=== PATIENT | male | born 1965 | race Caucasian/White ===

== ENCOUNTER 2016-08-30 03:44 | Emergency (ER) | payer OTHER ==
[~2016-08-30] VITALS: Ht 162.6 cm; Wt 81.0 kg
[2016-08-30 03:47] VITALS: BP 119/78; PULSE 79; RESP 18; TEMP 97.7; O2SAT 99
[2016-08-30] MEDS ORDERED: LEVA500T PO (04:00)
[2016-08-30] MEDS ORDERED: METOCLOPRAMIDE HCL 10 MG/2 ML VIAL IV PUSH ONE (05:15)
[2016-08-30] MEDS ORDERED: GLUCAGON 1 MG/ML VIAL IV PUSH ONE (05:15)
[2016-08-30] MEDS ORDERED: SODIUM CHLOR 0.9% 1000 ML INJ 1,000 ML IV SCH (05:15)
[2016-08-30 05:25] LABS: BASOPHIL # 0.1 TH/MM3 (0-0.2); BASOPHIL % 0.7 % (0.0-2.0); EOSINOPHIL # 0.2 TH/MM3 (0-0.4); EOSINOPHIL % 2.1 % (0.0-4.0); HEMATOCRIT 44.1 % (39.0-51.0); HEMO FLAGS DIFF FINAL; LYMPH % 18.6 % (9.0-44.0); LYMPHOCYTE # 2.1 TH/MM3 (1.0-4.8); MEAN CELL VOLUME 86.6 FL (80.0-100.0); MEAN CORPUSCULAR HEMOGLOBIN 30.3 PG (27.0-34.0); MONO % 8.8 % (0.0-8.0); NEUT % 69.8 % (16.0-70.0); PLATELET COUNT 226 TH/MM3 (150-450); RED BLOOD COUNT 5.09 MIL/MM3 (4.50-5.90); RED CELL DISTRIBUTION WIDTH 12.8 % (11.6-17.2); WHITE BLOOD COUNT 11.5 TH/MM3 (4.0-11.0)
--- NOTE | 2016-08-30 05:37 | PD ---
HPI Chief Complaint: ENT Complaint Time Seen by Provider: 05:04 Travel History International Travel<30 days: No Contact w/Intl Traveler<30days: No Traveled to known affect area: No History of Present Illness HPI 51-year-old male presents to the emergency department for complaint of retained food bolus. Patient states that 3 days ago while eating chicken he became choked on the food and his friend performed the Heimlich on him and he has felt somewhat better but has been unable to tolerate solid oral intake. Patient states that he has no chronic medical conditions no heart disease high blood pressure no dyslipidemia no diabetes no previous issues with reflux or esophageal stricture. Patient states he has been able to handle oral secretions and he has been able to handle liquid intake and occasionally soft diet such as yogurt or putting. Patient states he has attempted solid food intake but again feels as if something becomes lodged in his lower esophagus even if he eats very small bites. Patient reports that he was seen in urgent care yesterday he was diagnosed with pneumonia and placed on antibiotic and encouraged to follow-up with a bowling ball finisher as it was a concern that he might have an aspiration of a foreign body. Patient's had no fever no chills and only has chest discomfort when attempting to swallow or to eat any foods. Patient does not have referred neck jaw back shoulder arm pain or abdominal pain. Patient's had no vomiting. No hematemesis coffee-ground emesis melena hematochezia. Patient rates his pain 9/10 in intensity. [facility] Past Medical History Narrative Medical Disc disease, alcohol use, marijuana use; nursing notes reviewed Diverticulitis: Yes Herniated Disk: Yes Influenza Vaccination: No Past Surgical History Surgical History: No Previous Surgery Social History Alcohol Use: Yes (couple beers everyday) Tobacco Use: No Substance Use: Yes (marijuana) Allergies-Medications (Allergen,Severity, Reaction): Coded Allergies: Penicillin (Verified Allergy, Severe, STOP BREATHING, 08/30/16) Amoxicillin (Verified Allergy, Mild, RASH, 08/30/16) Reported Meds & Prescriptions Reported Meds & Active Scripts Active Protonix (Pantoprazole Sodium) 40 Mg Tab 40 Mg PO DAILY Reported Levaquin (Levofloxacin) 500 Mg Tab 500 Mg PO DAILY Review of Systems Except as stated in HPI: all other systems reviewed are Neg General / Constitutional: No: Fever, Chills HENT: No: Headaches Cardiovascular: Positive: Chest Pain or Discomfort (with swallowing) Respiratory: No: Cough, Shortness of Breath Gastrointestinal: No: Nausea, Vomiting, Abdominal Pain Genitourinary: No: Flank Pain Musculoskeletal: No: Myalgias, Arthralgias Skin: No Rash Psychiatric: No: Anxiety Endocrine: No: Heat Intolerance Hematologic/Lymphatic: No: Easy Bruising Physical Exam Narrative GENERAL: Well-developed well-nourished male in no acute distress no respiratory distress. No stridor or hoarseness. SKIN: Warm and dry. HEAD: Normocephalic. EYES: No scleral icterus. No injection or drainage. NECK: Supple, trachea midline. No JVD or lymphadenopathy. CARDIOVASCULAR: Regular rate and rhythm without murmurs, gallops, or rubs. RESPIRATORY: Breath sounds equal bilaterally. No accessory muscle use. No wheezing no rales. GASTROINTESTINAL: Abdomen soft, non-tender, nondistended. MUSCULOSKELETAL: No cyanosis, or edema. BACK: Nontender without obvious deformity. No CVA tenderness. Data Data Last Documented VS Vital Signs Date Time Temp Pulse Resp B/P Pulse Ox O2 Delivery O2 Flow Rate FiO2 08/30/16 06:59 87 18 120/78 99 08/30/16 03:47 97.7 Room Air Orders Complete Blood Count With Diff (08/30/16 05:04) Chest, Single Ap (08/30/16 ) Electrocardiogram (08/30/16 ) Basic Metabolic Panel (Bmp) (08/30/16 05:04) Act Partial Throm Time (Ptt) (08/30/16 05:04) Prothrombin Time / Inr (Pt) (08/30/16 05:04) Metoclopramide Inj (Reglan Inj) (08/30/16 05:15) Glucagon Inj (Glucagon Inj) (08/30/16 05:15) Sodium Chlor 0.9% 1000 Ml Inj (Ns 1000 M (08/30/16 05:15) Morphine Inj (Morphine Inj) (08/30/16 05:45) Nitroglycerin Sl (Nitrostat Sl) (08/30/16 05:45) Pantoprazole (Protonix) (08/30/16 07:00) Labs Laboratory Tests Test 08/30/16 05:17 White Blood Count 11.5 TH/MM3 Red Blood Count 5.09 MIL/MM3 Hemoglobin 15.4 GM/DL Hematocrit 44.1 % Mean Corpuscular Volume 86.6 FL Mean Corpuscular Hemoglobin 30.3 PG Mean Corpuscular Hemoglobin 35.0 % Concent Red Cell Distribution Width 12.8 % Platelet Count 226 TH/MM3 Mean Platelet Volume 8.0 FL Neutrophils (%) (Auto) 69.8 % Lymphocytes (%) (Auto) 18.6 % Monocytes (%) (Auto) 8.8 % Eosinophils (%) (Auto) 2.1 % Basophils (%) (Auto) 0.7 % Neutrophils # (Auto) 8.0 TH/MM3 Lymphocytes # (Auto) 2.1 TH/MM3 Monocytes # (Auto) 1.0 TH/MM3 Eosinophils # (Auto) 0.2 TH/MM3 Basophils # (Auto) 0.1 TH/MM3 CBC Comment DIFF FINAL Differential Comment Prothrombin Time 11.9 SEC Prothromb Time International 1.1 RATIO Ratio Activated Partial 29.9 SEC Thromboplast Time Sodium Level 139 MEQ/L Potassium Level 4.4 MEQ/L Chloride Level 105 MEQ/L Carbon Dioxide Level 24.1 MEQ/L Anion Gap 10 MEQ/L Blood Urea Nitrogen 12 MG/DL Creatinine 1.23 MG/DL Estimat Glomerular Filtration 62 ML/MIN Rate Random Glucose 111 MG/DL Calcium Level 9.1 MG/DL [facility] Medical Decision Making Medical Screen Exam Complete: Yes Emergency Medical Condition: Yes Medical Record Reviewed: Yes Interpretation(s) EKG: Normal sinus rhythm rate [address] elevation or injury pattern change noted Last Impressions Chest X-Ray 08/30/16 0000 Signed Impressions: Service Date/Time: Tuesday, August 30, 2016 05:17 - CONCLUSION: No acute disease. Alhaji Nieves MD CBC & BMP Diagram 08/30/16 05:17 Vital Signs Date Time Temp Pulse Resp B/P Pulse Ox O2 Delivery O2 Flow Rate FiO2 08/30/16 03:47 97.7 79 18 119/78 99 Room Air Differential Diagnosis Retained esophageal foreign body, aspiration, pneumonia, esophageal spasm Narrative Course At 6:37 AM patient is clinically improved; patient given trial of oral hydration At 6:40 AM patient is able to tolerate oral hydration well without recurrent discomfort Physician Communication Physician Communication discussed with Dr Clinton --will see in office Diagnosis Primary Impression: Esophageal spasm Referrals: Oz,Denton El-sayed MD call for appointment Patient Instructions: General Instructions Additional Instructions: Follow clear liquid diet for next 12-24 hours advance as tolerated to bland/ soft diet as tolerated and then to regular diet avoiding fried and fatty foods Take Protonix as prescribed daily Follow-up with clinical rn manager call office in a.m. to schedule follow-up appointment Follow up with primary care provider Return to the emergency department for any concerns or change in condition Med/Other Pt SpecificInfo: Prescription(s) given Scripts Pantoprazole (Protonix)40 Mg Tab40 Mg PO DAILY #14 TAB Ref 0 Prov:Frida Lopez MD 08/30/16 Disposition: DISCHARGE HOME Condition: Stable Frida Lopez MD Aug 30, 2016 05:37
[2016-08-30 05:44] LABS: BICARBONATE 24.1 MEQ/L (21.0-32.0); POTASSIUM 4.4 MEQ/L (3.5-5.1)
[2016-08-30] MEDS ORDERED: MORPHINE SULFATE 4 MG/ML INJ IV PUSH ONE (05:45)
[2016-08-30] MEDS ORDERED: NITROGLYCERIN 0.4 MG SL 25 TABS/BTL SL ONE (05:45)
--- NOTE | 2016-08-30 06:26 | RADRPT ---
EXAM DATE/TIME: 08/30/2016 05:17 [facility] COMPARISON: No previous studies available for comparison. INDICATIONS : Swallowing difficulty with burning midline chest. MEDICAL HISTORY : None. SURGICAL HISTORY : None. ENCOUNTER: Initial ACUITY: 1 day PAIN SCORE: 8/10 LOCATION: MID CHEST FINDINGS: A single view of the chest demonstrates the lungs to be symmetrically aerated without evidence of mas s, infiltrate or effusion. The cardiomediastinal contours are unremarkable. Osseous structures are intact. CONCLUSION: No acute disease. Alhaji Nieves MD on August 30, 2016 at 6:25 Board Certified Radiologist. This report was verified electronically.
[2016-08-30 06:32] LABS: APTT (PATIENT) 29.9 SEC (24.3-30.1); INTERNATIONAL NORMALIZED RATIO 1.1 RATIO; PROTHROMBIN TIME - PATIENT 11.9 SEC (9.8-11.6)
[2016-08-30] MEDS ORDERED: PROT40TA PO (06:50)
[2016-08-30 06:59] VITALS: BP 120/78
[2016-08-30] MEDS ORDERED: PANTOPRAZOLE SOD 20 MG DELAYED RELEASE TAB PO ONE (07:00)
--- NOTE | 2016-08-30 14:25 | EKG ---
Date Performed: 08/30/2016 Time Performed: 05:34:12 PTAGE: 51 years EKG: Sinus rhythm NORMAL ECG NO PREVIOUS TRACING DOCTOR: Bartolo Morrissey Interpretating Date/Time 08/30/2016 14:25:01
== END 2016-08-30 07:52 | disposition home or self-care (01) ==
LOC: NEPC 03:44
DX: K22.4 Dyskinesia of esophagus (principal); R13.10 Dysphagia, unspecified
CPT/HCPCS: 71010; 80048; 85025; 85610; 85730; 93005; 96361; 96374; 96375; 99284; J1610; J2270; J2765; J7030

== ENCOUNTER 2017-01-30 19:25 | Emergency (ER) | payer OTHER ==
[~2017-01-30] VITALS: Ht 165.1 cm; Wt 78.0 kg
[~2017-01-30 19:25] MED LIST: LEVA500T PO; PROT40TA PO
[2017-01-30] MEDS ORDERED: IOHEXOL 350 MG/ML 10 ML VIAL (for RAD DIAG) IVCONTRAST ONE (19:26)
[2017-01-30 19:27] VITALS: BP 135/87; PULSE 65; RESP 16; TEMP 98.1; O2SAT 98
[2017-01-30 21:18] VITALS: BP 155/99; PULSE 56; RESP 18; O2SAT 100
[2017-01-30] MEDS ORDERED: SODIUM CHLORIDE 0.9% FLUSH 10 ML FLUSH IV FLUSH PRN (22:00)
--- NOTE | 2017-01-30 22:04 | PD ---
HPI Chief Complaint: Abdominal Pain Time Seen by Provider: 21:24 Travel History International Travel<30 days: No Contact w/Intl Traveler<30days: No Traveled to known affect area: No History of Present Illness HPI 51yo M presents to the ED with c/o left lower abdominal pain for 1 week but worse today. Pt had similar abdominal pain 1 month ago and went to his PMD and got some antibiotics and felt better. Pt also with rectal pain today and states he had hard stool. Also had difficulty starting urination today. Denies any fever, chest pain, sob, n/v, dysuria, hematuria, testicular pain, penile rash or discharge. PFSH Past Medical History Diminished Hearing: No Diverticulitis: Yes Herniated Disk: Yes Tetanus Vaccination: < 5 Years Influenza Vaccination: No Social History Alcohol Use: Yes (couple beers everyday) Tobacco Use: No Substance Use: Yes (marijuana) Allergies-Medications (Allergen,Severity, Reaction): Coded Allergies: penicillin G (Unverified Allergy, Severe, STOP BREATHING, 01/30/17) amoxicillin (Unverified Allergy, Mild, RASH, 01/30/17) Reported Meds & Prescriptions Reported Meds & Active Scripts Active No Active Prescriptions or Reported Medications Review of Systems Except as stated in HPI: all other systems reviewed are Neg Physical Exam Narrative GENERAL: 51yo M in mild distress. SKIN: Focused skin assessment warm/dry. HEAD: Atraumatic. Normocephalic. CARDIOVASCULAR: Regular rate and rhythm. No murmur appreciated. RESPIRATORY: No accessory muscle use. Clear to auscultation. Breath sounds equal bilaterally. GASTROINTESTINAL: Abdomen soft, +TTP LLQ. No rebound tenderness or guarding. RECTAL: No external hemorrhoids. No abscess. No open wounds. Hemaprompt negative. Brown stool. MUSCULOSKELETAL: No obvious deformities. No clubbing. No cyanosis. No edema. NEUROLOGICAL: Awake and alert. No obvious cranial nerve deficits. Motor grossly within normal limits. Normal speech. PSYCHIATRIC: Appropriate mood and affect; insight and judgment normal. Data Data Last Documented VS Vital Signs Date Time Temp Pulse Resp B/P (MAP) Pulse Ox O2 Delivery O2 Flow Rate FiO2 01/30/17 23:34 65 18 144/96 (112) 99 Room Air 01/30/17 19:27 98.1 Orders Orders Complete Blood Count With Diff (01/30/17 21:51) Comprehensive Metabolic Panel (01/30/17 21:51) Lipase (01/30/17 21:51) Urinalysis - C+S If Indicated (01/30/17 21:51) Iv Access Insert/Monitor (01/30/17 21:51) Ecg Monitoring (01/30/17 21:51) Oximetry (01/30/17 21:51) Sodium Chloride 0.9% Flush (Ns Flush) (01/30/17 22:00) Morphine Inj (Morphine Inj) (01/30/17 23:15) Ct Abd/Pel W Iv Contrast(Rout) (01/30/17 ) Iohexol 350 Inj (Omnipaque 350 Inj) (01/30/17 19:26) Ciprofloxacin (Cipro) (01/31/17 01:00) Metronidazole (Flagyl) (01/31/17 01:00) Labs Laboratory Tests Test 01/30/17 22:35 01/30/17 22:55 White Blood Count 8.3 TH/MM3 Red Blood Count 4.56 MIL/MM3 Hemoglobin 14.2 GM/DL Hematocrit 39.8 % Mean Corpuscular Volume 87.2 FL Mean Corpuscular Hemoglobin 31.2 PG Mean Corpuscular Hemoglobin Concent 35.8 % Red Cell Distribution Width 12.8 % Platelet Count 205 TH/MM3 Mean Platelet Volume 8.4 FL Neutrophils (%) (Auto) 57.5 % Lymphocytes (%) (Auto) 32.7 % Monocytes (%) (Auto) 6.8 % Eosinophils (%) (Auto) 2.4 % Basophils (%) (Auto) 0.6 % Neutrophils # (Auto) 4.8 TH/MM3 Lymphocytes # (Auto) 2.7 TH/MM3 Monocytes # (Auto) 0.6 TH/MM3 Eosinophils # (Auto) 0.2 TH/MM3 Basophils # (Auto) 0.1 TH/MM3 CBC Comment DIFF FINAL Differential Comment Blood Urea Nitrogen 19 MG/DL Creatinine 1.18 MG/DL Random Glucose 90 MG/DL Total Protein 6.7 GM/DL Albumin 3.5 GM/DL Calcium Level 8.9 MG/DL Alkaline Phosphatase 63 U/L Aspartate Amino Transf (AST/SGOT) 54 U/L Alanine Aminotransferase (ALT/SGPT) 48 U/L Total Bilirubin 0.3 MG/DL Sodium Level 141 MEQ/L Potassium Level 4.0 MEQ/L Chloride Level 107 MEQ/L Carbon Dioxide Level 24.5 MEQ/L Anion Gap 10 MEQ/L Estimat Glomerular Filtration Rate 65 ML/MIN Lipase 313 U/L Urine Color YELLOW Urine Turbidity CLEAR Urine pH 5.5 Urine Specific [place] 1.013 Urine Protein NEG mg/dL Urine Glucose (UA) NEG mg/dL Urine Ketones NEG mg/dL Urine Occult Blood NEG Urine Nitrite NEG Urine Bilirubin NEG Urine Urobilinogen LESS THAN 2.0 MG/DL Urine Leukocyte Esterase NEG Urine RBC LESS THAN 1 /hpf Urine WBC 1 /hpf Microscopic Urinalysis Comment CULT NOT INDICATED MDM Medical Decision Making Medical Screen Exam Complete: Yes Emergency Medical Condition: Yes Differential Diagnosis Acute diverticulitis vs. prostatitis vs. UTI Narrative Course 51yo M with left lower abdominal pain for 1 week. Pt had similar pain 1 month ago and was given antibiotics which helped. Pt did not have any imaging done and presumed to have had diverticulitis. Pt also with a different rectal pain today. Hemaprompt negative. Labs reviewed, no leukocytosis. AST mildly elevated but pt has no right sided abdominal pain. Lipase normal. UA negative for blood, leukocyte. Pt given morphine 4mg IV which helped with pain. Although, clinically sounds like diverticulitis, pt has not had any imaging and this is the second time the pain has been there, so will obtain CTa/p to r/o complications of diverticulitis. CTa/p showed mild sigmoid diverticulitis. No abscess, obstruction, free fluid or free air. Pt given first dose of ciprofloxacin and metronidazole here. He is well appearing and tolerating PO. Diagnosis Primary Impression: Diverticulitis Qualified Codes: K57.32 - Diverticulitis of large intestine without perforation or abscess without bleeding Patient Instructions: General Instructions Departure Forms: Tests/Procedures Additional Instructions: Please follow up with your primary care physician in 3-7 days. Return to the ED if symptoms worsen. Med/Other Pt SpecificInfo: Prescription(s) given Scripts Metronidazole (Metronidazole) 500 Mg Tab 500 MG PO TID for Infection for 7 Days, TAB 0 Refills Prov: Radha Walton DO 01/31/17 Ciprofloxacin (Cipro) 500 Mg Tab 500 MG PO BID for Infection for 7 Days, TAB 0 Refills Prov: Radha Walton DO 01/31/17 Disposition: 01 DISCHARGE HOME Condition: Stable Radha Walton DO Jan 30, 2017 22:04
[2017-01-30 22:29] VITALS: RESP 18; O2SAT 99
[2017-01-30 23:02] LABS: AUTOMATED NEUTROPHIL # 4.8 TH/MM3 (1.8-7.7); BASOPHIL # 0.1 TH/MM3 (0-0.2); BASOPHIL % 0.6 % (0.0-2.0); EOSINOPHIL # 0.2 TH/MM3 (0-0.4); EOSINOPHIL % 2.4 % (0.0-4.0); HEMATOCRIT 39.8 % (39.0-51.0); HEMO FLAGS DIFF FINAL; LYMPH % 32.7 % (9.0-44.0); LYMPHOCYTE # 2.7 TH/MM3 (1.0-4.8); MEAN CELL VOLUME 87.2 FL (80.0-100.0); MEAN CORPUSCULAR HEMOGLOBIN 31.2 PG (27.0-34.0); MEAN CORPUSCULAR HGB CONC 35.8 % (32.0-36.0); MONO % 6.8 % (0.0-8.0); NEUT % 57.5 % (16.0-70.0); PLATELET COUNT 205 TH/MM3 (150-450); RED BLOOD COUNT 4.56 MIL/MM3 (4.50-5.90); RED CELL DISTRIBUTION WIDTH 12.8 % (11.6-17.2); WHITE BLOOD COUNT 8.3 TH/MM3 (4.0-11.0)
[2017-01-30 23:12] LABS: BLOOD, URINE NEG (NEG); COMMENT (UR) CULT NOT INDICATED; CULTURE IF INDICATED CULT NOT INDICATED; GLUCOSE,URINE NEG (NEG); KETONE, URINE NEG (NEG); NITRITE,URINE NEG (NEG); PH, URINE 5.5 (5.0-8.5); URINE COLOR YELLOW (YELLW/STRAW)
[2017-01-30] MEDS ORDERED: MORPHINE SULFATE 4 MG/ML INJ IV PUSH ONE (23:15)
[2017-01-30 23:20] LABS: ALT (GPT) 48 U/L (12-78); ANION GAP 10 MEQ/L (5-15); AST (GOT) 54 U/L (15-37); BICARBONATE 24.5 MEQ/L (21.0-32.0); BLOOD UREA NITROGEN 19 MG/DL (7-18); CHLORIDE 107 MEQ/L (98-107); GLOMERULAR FILTRATION RATE 65 ML/MIN (>89); SODIUM (NA) 141 MEQ/L (136-145)
[2017-01-30 23:22] LABS: ALKALINE PHOSPHATASE 63 U/L (45-117); TOTAL BILIRUBIN ADULT 0.3 MG/DL (0.2-1.0)
[2017-01-30 23:34] VITALS: BP 144/96; PULSE 65; RESP 18; O2SAT 99
--- NOTE | 2017-01-31 00:41 | RADRPT ---
EXAM DATE/TIME: 01/31/2017 00:10 [facility] COMPARISON: No previous studies available for comparison. INDICATIONS : Left lower abdomen and groin pain. IV CONTRAST: 75 cc Omnipaque 350 (iohexol) IV ORAL CONTRAST: No oral contrast ingested. RADIATION DOSE: 12.75 CTDIvol (mGy) MEDICAL HISTORY : Diverticulitis. SURGICAL HISTORY : None. ENCOUNTER: Initial ACUITY: 2 weeks PAIN SCALE: 5/10 LOCATION: Left lower quadrant TECHNIQUE: Volumetric scanning of the abdomen and pelvis was performed. Using automated exposure control and ad justment of the mA and/or kV according to patient size, radiation dose was kept as low as reasonably achievable to obtain optimal diagnostic quality images. DICOM format image data is available electro nically for review and comparison. FINDINGS: Lung bases are clear. Calcified granulomata in the liver. The spleen, adrenals and pancreas unremarka ble. Numerous small nonobstructing calculi in both kidneys in the upper and lower poles ranging in si ze from 1-3 mm. No bowel obstruction. No free air or free fluid. No adenopathy. There are sigmoid diverticula with some mild inflammatory changes in the mid sigmoid most characteris tic of a mild diverticulitis. CONCLUSION: Mild sigmoid diverticulitis. No abscess, obstruction, free fluid or free air. Multiple nonobstructing bilateral renal calculi. Aftab Rhodes MD on January 31, 2017 at 0:34 Board Certified Radiologist. This report was verified electronically.
[2017-01-31] MEDS ORDERED: CIPR-9 PO (00:56)
[2017-01-31] MEDS ORDERED: METR500T10 PO (00:56)
[2017-01-31] MEDS ORDERED: CIPROFLOXACIN 500 MG TAB PO ONE (01:00)
[2017-01-31] MEDS ORDERED: metroNIDAZOLE 500 MG TAB PO ONE (01:00)
[2017-01-31 01:08] VITALS: BP 147/93
== END 2017-01-31 01:17 | disposition home or self-care (01) ==
LOC: NEPD 19:25
DX: K57.32 Diverticulitis of large intestine without perforation or abscess without bleeding (principal)
CPT/HCPCS: 74177; 80053; 81001; 83690; 85025; 96374; 99285; J2270; Q9967

== ENCOUNTER 2017-03-23 20:28 | Emergency (ER) | payer OTHER ==
[~2017-03-23] VITALS: Ht 162.6 cm; Wt 81.5 kg
[~2017-03-23 20:28] MED LIST changes: +CIPR-9 PO; -LEVA500T PO; +METR500T10 PO; -PROT40TA PO
[2017-03-23 20:31] VITALS: BP 136/100; PULSE 83; RESP 20; TEMP 97.8; O2SAT 97
[2017-03-23 22:39] VITALS: BP 136/94; PULSE 80; RESP 30; TEMP 98; O2SAT 99
--- NOTE | 2017-03-23 23:13 | PD ---
HPI . Abdominal pain Chief Complaint: Abdominal Pain Time Seen by Provider: 23:00 Travel History International Travel<30 days: No Contact w/Intl Traveler<30days: No Traveled to known affect area: No History of Present Illness HPI This patient presents complaining with abdominal pain, constipation and difficulty urinating. Onset was about 2 days ago. He has not tried anything other than his usual medications for his symptoms. Specifically, he has not tried a laxative. He states that he has felt like he is running a fever. He states that he has the urge to urinate and goes to the restroom and can only pass a couple of drops. He is also complaining with rectal pain. He reports previous similar symptoms related to diverticulitis. He believes that he was here a couple weeks ago for the same thing. He states that he just finished antibiotics a couple of days ago and that his symptoms immediately recurred. He states that his abdominal pain associated with it feels like he is dying. PFSH Past Medical History Diminished Hearing: No Diverticulitis: Yes Herniated Disk: Yes Kidney Stones: Yes Tetanus Vaccination: < 5 Years Influenza Vaccination: No Social History Alcohol Use: Yes (WEEKLY) Tobacco Use: No Substance Use: No Allergies-Medications (Allergen,Severity, Reaction): Coded Allergies: penicillin G (Unverified Allergy, Severe, STOP BREATHING, 03/23/17) amoxicillin (Unverified Allergy, Mild, RASH, 03/23/17) Reported Meds & Prescriptions Reported Meds & Active Scripts Active Metronidazole 500 Mg Tab 500 Mg PO TID 7 Days Cipro (Ciprofloxacin HCl) 500 Mg Tab 500 Mg PO BID 7 Days Review of Systems Except as stated in HPI: all other systems reviewed are Neg General / Constitutional: Positive: Fever, Chills Gastrointestinal: Positive: Nausea, Abdominal Pain, Constipation, No: Vomiting , Diarrhea Genitourinary: Positive: Urgency, Frequency, Decreased Urinary Output, Hesitancy, Dribbling, No: Dysuria, Hematuria Physical Exam Narrative Vital Signs Date Time Temp Pulse Resp B/P (MAP) Pulse Ox O2 Delivery O2 Flow Rate FiO2 03/23/17 22:39 98.0 80 30 136/94 (108) 99 Room Air 03/23/17 20:31 97.8 83 20 136/100 (112) 97 Room Air GENERAL: Pain scale using the Navarro-Hill Faces pain scale is 1/5. SKIN: warm/dry. HEAD: Normocephalic. Atraumatic. EYES: Pupils equal and round. No scleral icterus. No injection or drainage. ENT: No nasal bleeding or discharge. Mucous membranes pink and moist. NECK: Trachea midline. Full range of motion without pain.. CARDIOVASCULAR: Regular rate and rhythm. Heart sounds are normal. RESPIRATORY: No accessory muscle use. Clear to auscultation. Breath sounds equal bilaterally. GASTROINTESTINAL: Abdomen soft. Diffusely tender with no guarding or rebound. Bowel sounds present. Nondistended. MUSCULOSKELETAL: No obvious deformities. NEUROLOGICAL: Awake and alert. No obvious cranial nerve deficits. Motor grossly within normal limits. Normal speech. PSYCHIATRIC: Appropriate mood and affect; insight and judgment normal. Data Data Last Documented VS Vital Signs Date Time Temp Pulse Resp B/P (MAP) Pulse Ox O2 Delivery O2 Flow Rate FiO2 03/23/17 22:39 98.0 80 30 136/94 (108) 99 Room Air Orders Orders Complete Blood Count With Diff (03/23/17 23:15) Comprehensive Metabolic Panel (03/23/17 23:15) Lipase (03/23/17 23:15) Lactic Acid (03/23/17 23:15) Urinalysis - C+S If Indicated (03/23/17 23:15) Abdomen, Flat & Upright (03/23/17 ) Iv Access Insert/Monitor (03/23/17 23:15) Morphine Inj (Morphine Inj) (03/23/17 23:15) Ondansetron Inj (Zofran Inj) (03/23/17 23:15) Sodium Chloride 0.9% Flush (Ns Flush) (03/23/17 23:15) Bladder Scan PRN (03/23/17 23:15) Sodium Chlor 0.9% 1000 Ml Inj (Ns 1000 M (03/24/17 00:15) Fleets Enema (Adult) (Fleets Enema (Adul (03/24/17 00:30) Labs Laboratory Tests Test 03/23/17 23:30 White Blood Count 10.1 TH/MM3 Red Blood Count 4.55 MIL/MM3 Hemoglobin 14.3 GM/DL Hematocrit 39.7 % Mean Corpuscular Volume 87.1 FL Mean Corpuscular Hemoglobin 31.4 PG Mean Corpuscular Hemoglobin Concent 36.0 % Red Cell Distribution Width 13.0 % Platelet Count 277 TH/MM3 Mean Platelet Volume 7.8 FL Neutrophils (%) (Auto) 59.7 % Lymphocytes (%) (Auto) 29.2 % Monocytes (%) (Auto) 9.4 % Eosinophils (%) (Auto) 1.1 % Basophils (%) (Auto) 0.6 % Neutrophils # (Auto) 6.1 TH/MM3 Lymphocytes # (Auto) 3.0 TH/MM3 Monocytes # (Auto) 1.0 TH/MM3 Eosinophils # (Auto) 0.1 TH/MM3 Basophils # (Auto) 0.1 TH/MM3 CBC Comment AUTO DIFF Blood Urea Nitrogen 26 MG/DL Creatinine 1.37 MG/DL Random Glucose 110 MG/DL Total Protein 7.0 GM/DL Albumin 3.9 GM/DL Calcium Level 9.8 MG/DL Alkaline Phosphatase 67 U/L Aspartate Amino Transf (AST/SGOT) 18 U/L Alanine Aminotransferase (ALT/SGPT) 38 U/L Total Bilirubin 0.7 MG/DL Sodium Level 138 MEQ/L Potassium Level 3.5 MEQ/L Chloride Level 105 MEQ/L Carbon Dioxide Level 23.8 MEQ/L Anion Gap 9 MEQ/L Estimat Glomerular Filtration Rate 55 ML/MIN Lactic Acid Level 1.1 mmol/L Lipase 148 U/L MDM Medical Decision Making Medical Screen Exam Complete: Yes Emergency Medical Condition: Yes Medical Record Reviewed: Yes (this patient was last seen here on January 30. He was treated for diverticulitis at that time with Flagyl. He had a CT that showed mild sigmoid diverticulitis. His laboratory workup was negative.) Differential Diagnosis Differential diagnosis of abdominal pain includes but is not limited to gastritis, pancreatitis, hepatitis, gastroenteritis, gallbladder disease, constipation, urinary retention, UTI, peptic ulcer disease, diverticulitis or appendicitis Narrative Course This patient presents with diffuse abdominal pain associated with constipation and inability to urinate. I will asked the nurses to do a bladder scan. I will check basic labs. I will dictate plain films of his abdomen to assess his level of constipation. Because of the risk associated with radiation, I will not do another CT of his abdomen unless his labs are abnormal. Bladder scan showed about 250 cc of urine. abd X-ray>>: Normal examination. The x-ray was independently viewed by me. CBC & BMP Diagram 03/23/17 23:30 Total Protein 7.0, Albumin 3.9, Calcium Level 9.8, Alkaline Phosphatase 67, Aspartate Amino Transf (AST/SGOT) 18, Alanine Aminotransferase (ALT/SGPT) 38, Total Bilirubin 0.7 Lactic acid level is 1.1. Lipase is 148. His BUN/creatinine have increased since the last time that he was here. I will give him a liter of fluid. Please see Robert Saravia PA-C's note for results of laboratory and radiographic evaluation, ED course, final diagnosis and disposition Diagnosis Primary Impression: Abdominal pain Qualified Codes: R10.84 - Generalized abdominal pain Patient Instructions: Abdominal Pain (ED), Constipation (DC), General Instructions Scripts Tamsulosin (Flomax) 0.4 Mg Cap 0.4 MG PO HS for Manage Prostate Problems, #30 CAP 0 Refills Prov: Anusha Parsons MD 03/24/17 Condition: Stable Anusha Parsons MD Mar 23, 2017 23:13
[2017-03-23] MEDS ORDERED: ONDANSETRON HCL 4 MG/2 ML VIAL IVP ONE (23:15)
[2017-03-23] MEDS ORDERED: MORPHINE SULFATE 4 MG/ML INJ IV PUSH ONE (23:15)
[2017-03-23] MEDS ORDERED: SODIUM CHLORIDE 0.9% FLUSH 10 ML FLUSH IV FLUSH PRN (23:15)
[2017-03-23 23:43] LABS: AUTOMATED NEUTROPHIL # 6.1 TH/MM3 (1.8-7.7); BASOPHIL # 0.1 TH/MM3 (0-0.2); BASOPHIL % 0.6 % (0.0-2.0); EOSINOPHIL # 0.1 TH/MM3 (0-0.4); EOSINOPHIL % 1.1 % (0.0-4.0); HEMATOCRIT 39.7 % (39.0-51.0); HEMO FLAGS AUTO DIFF; LYMPH % 29.2 % (9.0-44.0); MEAN CELL VOLUME 87.1 FL (80.0-100.0); MEAN CORPUSCULAR HEMOGLOBIN 31.4 PG (27.0-34.0); MONO % 9.4 % (0.0-8.0); NEUT % 59.7 % (16.0-70.0); PLATELET COUNT 277 TH/MM3 (150-450); RED BLOOD COUNT 4.55 MIL/MM3 (4.50-5.90); WHITE BLOOD COUNT 10.1 TH/MM3 (4.0-11.0)
[2017-03-24 00:03] LABS: ALT (GPT) 38 U/L (12-78); ANION GAP 9 MEQ/L (5-15); AST (GOT) 18 U/L (15-37); BICARBONATE 23.8 MEQ/L (21.0-32.0); BLOOD UREA NITROGEN 26 MG/DL (7-18); CHLORIDE 105 MEQ/L (98-107); GLOMERULAR FILTRATION RATE 55 ML/MIN (>89); POTASSIUM 3.5 MEQ/L (3.5-5.1); SODIUM (NA) 138 MEQ/L (136-145)
[2017-03-24 00:06] LABS: ALKALINE PHOSPHATASE 67 U/L (45-117); TOTAL BILIRUBIN ADULT 0.7 MG/DL (0.2-1.0)
[2017-03-24] MEDS ORDERED: SODIUM CHLOR 0.9% 1000 ML INJ 1,000 ML IV ONE (00:15)
--- NOTE | 2017-03-24 00:17 | RADRPT ---
EXAM DATE/TIME: 03/23/2017 23:26 [facility] COMPARISON: No previous studies available for comparison. INDICATIONS : Ongoing abdominal pain for three months. MEDICAL HISTORY : Diverticulitis. SURGICAL HISTORY : None. ENCOUNTER: Subsequent ACUITY: 3 months PAIN SCORE: 8/10 LOCATION: Bilateral Abdomen FINDINGS: Supine and upright views of the abdomen were performed. The abdominal bowel gas pattern is normal. No air fluid levels are seen. No abnormal masses, calcifications, or organomegaly is seen. The visu alized lower lungs are clear. No evidence of free intraperitoneal gas. The osseous structures are u nremarkable. CONCLUSION: Normal examination. Armando Samuels MD on March 24, 2017 at 0:15 Board Certified Radiologist. This report was verified electronically.
[2017-03-24] MEDS ORDERED: SOD PHOSPHATE/SOD BIPHOSPHATE (ADULT) ENEMA 133ML RECTAL ONE (00:30)
[2017-03-24] MEDS ORDERED: TAMS5CAP PO (00:55)
[2017-03-24 01:30] LABS: BANDS 3 % (0-6); EOSINOPHILS 1 % (0-4); NEUTROPHIL # MANUAL DIFF 6.6 TH/MM3 (1.8-7.7); POLYS (SEG NEUTROPHILS) 62 % (16-70); WBC DIFF SAMPLE 100
[2017-03-24 01:32] LABS: PLATELET ESTIMATE SMEAR NORMAL (NORMAL); PLATELET MORPHOLOGY NORMAL (NORMAL); SCAN/DIFF FINAL DIFF MANUAL
--- NOTE | 2017-03-24 02:22 | PD ---
Physical Exam Date Seen by Provider: Mar 24, 2017 Time Seen by Provider: 02:17 Narrative GENERAL: This is a well-nourished, well-developed patient, in no apparent distress. SKIN: No rashes, ecchymoses or lesions. Warm and dry. HEAD: Atraumatic. Normocephalic. EYES: PERRL, EOMI, no discharge or injection. No scleral icterus. EARS: Clear NOSE: Nasal turbinates appear normal. THROAT: Mucosa pink and moist. Airway patent. NECK: Trachea midline. supple, moves head freely. LUNGS: Clear to auscultation. CV: Regular in rhythm. ABDOMEN: Soft nontender. No abnormal masses. No guarding or rebound. EXT: No clubbing cyanosis or edema. Data Data Last Documented VS Vital Signs Date Time Temp Pulse Resp B/P (MAP) Pulse Ox O2 Delivery O2 Flow Rate FiO2 03/23/17 22:39 98.0 80 30 136/94 (108) 99 Room Air Orders Orders Complete Blood Count With Diff (03/23/17 23:15) Comprehensive Metabolic Panel (03/23/17 23:15) Lipase (03/23/17 23:15) Lactic Acid (03/23/17 23:15) Urinalysis - C+S If Indicated (03/23/17 23:15) Abdomen, Flat & Upright (03/23/17 ) Iv Access Insert/Monitor (03/23/17 23:15) Morphine Inj (Morphine Inj) (03/23/17 23:15) Ondansetron Inj (Zofran Inj) (03/23/17 23:15) Sodium Chloride 0.9% Flush (Ns Flush) (03/23/17 23:15) Bladder Scan PRN (03/23/17 23:15) Sodium Chlor 0.9% 1000 Ml Inj (Ns 1000 M (03/24/17 00:15) Fleets Enema (Adult) (Fleets Enema (Adul (03/24/17 00:30) Urinary Catheter Insert/Apply (03/24/17 01:23) Labs Laboratory Tests Test 03/23/17 23:30 03/24/17 02:00 White Blood Count 10.1 TH/MM3 Red Blood Count 4.55 MIL/MM3 Hemoglobin 14.3 GM/DL Hematocrit 39.7 % Mean Corpuscular Volume 87.1 FL Mean Corpuscular Hemoglobin 31.4 PG Mean Corpuscular Hemoglobin Concent 36.0 % Red Cell Distribution Width 13.0 % Platelet Count 277 TH/MM3 Mean Platelet Volume 7.8 FL Neutrophils (%) (Auto) 59.7 % Lymphocytes (%) (Auto) 29.2 % Monocytes (%) (Auto) 9.4 % Eosinophils (%) (Auto) 1.1 % Basophils (%) (Auto) 0.6 % Neutrophils # (Auto) 6.1 TH/MM3 Lymphocytes # (Auto) 3.0 TH/MM3 Monocytes # (Auto) 1.0 TH/MM3 Eosinophils # (Auto) 0.1 TH/MM3 Basophils # (Auto) 0.1 TH/MM3 CBC Comment AUTO DIFF Differential Total Cells Counted 100 Neutrophils % (Manual) 62 % Band Neutrophils % 3 % Lymphocytes % 27 % Monocytes % 7 % Eosinophils % 1 % Neutrophils # (Manual) 6.6 TH/MM3 Differential Comment FINAL DIFF MANUAL Platelet Estimate NORMAL Platelet Morphology Comment NORMAL Red Cell Morphology Comment NORMAL Blood Urea Nitrogen 26 MG/DL Creatinine 1.37 MG/DL Random Glucose 110 MG/DL Total Protein 7.0 GM/DL Albumin 3.9 GM/DL Calcium Level 9.8 MG/DL Alkaline Phosphatase 67 U/L Aspartate Amino Transf (AST/SGOT) 18 U/L Alanine Aminotransferase (ALT/SGPT) 38 U/L Total Bilirubin 0.7 MG/DL Sodium Level 138 MEQ/L Potassium Level 3.5 MEQ/L Chloride Level 105 MEQ/L Carbon Dioxide Level 23.8 MEQ/L Anion Gap 9 MEQ/L Estimat Glomerular Filtration Rate 55 ML/MIN Lactic Acid Level 1.1 mmol/L Lipase 148 U/L Urine Color YELLOW Urine Turbidity CLEAR Urine pH 6.5 Urine Specific [place] 1.021 Urine Protein TRACE mg/dL Urine Glucose (UA) NEG mg/dL Urine Ketones NEG mg/dL Urine Occult Blood NEG Urine Nitrite NEG Urine Bilirubin NEG Urine Urobilinogen LESS THAN 2.0 MG/DL Urine Leukocyte Esterase NEG Urine RBC 3 /hpf Urine WBC 1 /hpf Urine Mucus FEW /lpf Urine Sperm RARE Microscopic Urinalysis Comment CULT NOT INDICATED MDM Medical Record Reviewed: Yes Supervised Visit with ESTHER: Yes Interpretation(s) UA: Negative CBC & BMP Diagram 03/23/17 23:30 Total Protein 7.0, Albumin 3.9, Calcium Level 9.8, Alkaline Phosphatase 67, Aspartate Amino Transf (AST/SGOT) 18, Alanine Aminotransferase (ALT/SGPT) 38, Total Bilirubin 0.7 Last 24 hours Impressions Abdomen X-Ray 03/23/17 0000 Signed Impressions: Service Date/Time: Thursday, March 23, 2017 23:26 - CONCLUSION: Normal examination. Armando Samuels MD Differential Diagnosis Differential diagnosis: Acute abdominal pain, chronic abdominal pain, constipation, BPH, prostatitis, diverticulitis, acute urinary tension Narrative Course The patient has been given a liter bolus of normal saline. He states that he is unable to void. He is urinating approximately 50 cc. Post catheter residual reveals 380 cc. The patient has defecated after having an enema. Patient's Walls catheter is removed. The patient will be started on Flomax and advised to follow-up with urology as well as a primary care doctor in the next- 48 hours. Diagnosis Primary Impression: Abdominal pain Qualified Codes: R10.84 - Generalized abdominal pain Additional Impression: BPH (benign prostatic hyperplasia) Qualified Codes: N40.1 - Benign prostatic hyperplasia with lower urinary tract symptoms; N13.8 - Other obstructive and reflux uropathy Referrals: Bryant Choi DO 2 days Patient Instructions: General Instructions, Constipation (DC), Abdominal Pain ( ED) Additional Instruction: Rest. Increase fluids. Flomax. MiraLAX. Follow-up with a primary care doctor in the next 48 hours. Follow-up with urology Med/Other Pt SpecificInfo: Prescription(s) given Scripts Tamsulosin (Flomax) 0.4 Mg Cap 0.4 MG PO HS for Manage Prostate Problems, #30 CAP 0 Refills Prov: Anusha Parsons MD 03/24/17 Disposition: 01 DISCHARGE HOME Condition: Stable Aftab Saravia Mar 24, 2017 02:22
[2017-03-24 02:24] LABS: BLOOD, URINE NEG (NEG); COMMENT (UR) CULT NOT INDICATED; CULTURE IF INDICATED CULT NOT INDICATED; GLUCOSE,URINE NEG (NEG); KETONE, URINE NEG (NEG); MUCUS URINE FEW /lpf (OCC); NITRITE,URINE NEG (NEG); PH, URINE 6.5 (5.0-8.5); URINE COLOR YELLOW (YELLW/STRAW)
[2017-03-24 02:52] VITALS: BP 128/82
== END 2017-03-24 02:57 | disposition home or self-care (01) ==
LOC: NEPD 20:28
DX: N40.1 Benign prostatic hyperplasia with lower urinary tract symptoms (principal); N13.8 Other obstructive and reflux uropathy; K59.00 Constipation, unspecified
CPT/HCPCS: 51702; 74020; 80053; 81001; 83605; 83690; 85007; 85027; 96361; 96374; 96375; 99284; J2270; J2405; J7030